=== PATIENT | male | born 2005 | race Caucasian/White ===

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

== ENCOUNTER 2024-06-09 10:36 | Emergency (ER) | payer OTHER ==
[~2024-06-09] VITALS: Ht 188 cm; Wt 74.8 kg
[~2024-06-09 10:36] MED LIST: BACI30OI9 TP; IBUP-1953 PO
[2024-06-09] MEDS: IV NS 0.9% 1,000 ML BAG IV ONE (11:30)
[2024-06-09 11:40] LABS: BASOPHILS % (AUTO) 0.8 % (0.0-2.0); EOSINOPHILS % (AUTO) 0.1 % (0.0-6.0); HEMATOCRIT 44 % (39-51); HEMOGLOBIN 14.9 g/dL (13.5-17.5); LYMPHOCYTES # (AUTO) 1.7 K/uL (0.8-4.8); LYMPHOCYTES % (AUTO) 30.3 % (20.0-44.0); MEAN CORPUSCULAR HEMOGLOBIN 31 PG (26.0-33.0); MEAN CORPUSCULAR HGB CONC 34 g/dl (31.0-36.0); MEAN CORPUSCULAR VOLUME 90 fL (80-96); MONOCYTES # (AUTO) 0.3 K/uL (0.1-1.30); MONOCYTES % (AUTO) 4.9 % (2.0-12.0); NEUTROPHILS # (AUTO) 3.5 K/uL (1.8-8.9); NEUTROPHILS % (AUTO) 63.9 % (43.0-81.0); PLATELET COUNT (AUTO) 240 K/uL (150-450); RED BLOOD CELL COUNT(AUTO) 4.86 MIL/uL (4.5-6.0); RED CELL DISTRIBUTION WIDTH 12.4 % (11.5-15.0); WHITE BLOOD COUNT (AUTO) 5.5 K/uL (4.3-11.0)
[2024-06-09] MEDS ORDERED: IOHEXOL-350 100 ML VIAL IV ONE (11:43)
[2024-06-09] MEDS ORDERED: IV NS 0.9% 250 ML IV ONE (11:43)
[2024-06-09] MEDS ORDERED: CT SWABBABLE VALVE TRANS SET 1 EA INFUS.SET MC ONE (11:43)
[2024-06-09 11:54] LABS: CALCIUM, SERUM 9.4 mg/dL (8.5-10.1); CARBON DIOXIDE 28 mmol/L (21-32); CHLORIDE 106 mmol/L (98-107); CREATININE 0.9 mg/dL (0.6-1.3); GLUCOSE 94 mg/dL (74-106); SODIUM SERUM 143 mmol/L (136-145); UREA NITROGEN, BLOOD 16 mg/dL (7-18)
[2024-06-09 13:06] VITALS: BP 125/75; TEMP 98.3; O2SAT 100
== END 2024-06-09 12:50 | disposition home or self-care (01) ==
LOC: ER 10:42
DX: R07.89 Other chest pain (principal); J93.83 Other pneumothorax
CPT/HCPCS: 99285; 96360; 71275; 71045; 93005 ×2; 85025; 80048; 36415; 84484; J7050; Q9967

== ENCOUNTER 2024-06-10 09:14 | Emergency (ER) | payer OTHER ==
[~2024-06-10] VITALS: Ht 188 cm; Wt 74.8 kg
[2024-06-10 12:30] VITALS: BP 122/82; TEMP 98.3; O2SAT 99
== END 2024-06-10 12:31 | disposition home or self-care (01) ==
LOC: ER 09:17
DX: J93.83 Other pneumothorax (principal); Z79.899 Other long term (current) drug therapy
CPT/HCPCS: 71045-TC